=== PATIENT | female | born 1945 | race Asian ===

== ENCOUNTER 2019-11-22 14:47 | Emergency (ER) | payer MEDICARE, OTHER ==
[~2019-11-22] VITALS: Ht 154.9 cm; Wt 45.4 kg
--- NOTE | 2019-11-22 15:24 | NUR ---
PT IS IN ROOM #1A. DR DAVIS EVALUATED THE PT.
--- NOTE | 2019-11-22 15:44 | NUR ---
PT WAS D/C'd TO HOME. D/C INSTRUCTIONS GIVENTO THE PT AND TO HER SON.
[2019-11-22 15:46] VITALS: BP 139/71
== END 2019-11-22 15:46 | disposition home or self-care (01) ==
LOC: ER 14:47
DX: H53.8 Other visual disturbances (principal)
CPT/HCPCS: A4663